=== PATIENT | male | born 1965 | race Caucasian/White ===

== ENCOUNTER 2017-01-29 11:44 | Day surgery (SDC) | payer BC ==
[2017-01-27 10:16] VITALS: BMI 29.5
[~2017-01-29 11:44] MED LIST: LACTATED RINGERS 1,000 ML IV SCH
[2017-01-29 12:19] VITALS: TEMP 98
[2017-01-29] MEDS ORDERED: LACTATED RINGERS 1,000 ML IV ONE (12:20)
[2017-01-29] MEDS ORDERED: LIDOCAINE 1% 20 ML VIAL (10MG/ML) FOR IV START INTRADERMA ONE (12:20)
[2017-01-29] MEDS ORDERED: LIDOCAINE 1% INJ 10MG/ML (20 ML MDV) ONE (12:37)
[2017-01-29] MEDS ORDERED: PROPOFOL 10 MG/ML 20 ML VIAL IV ONE (12:37)
--- NOTE | 2017-01-29 12:48 | P.GSHP ---
History of Present Illness H&P Date: 01/29/17 Chief Complaint: GERD, screening Patient today with complaints of chronic reflux. She he has a family history of esophageal cancer in his father. Also here today for screening colonoscopy. No bowel related complaints. Never had a colonoscopy before. Past Medical History Past Medical History: GERD/Reflux, Hyperlipidemia Additional Past Medical History / Comment(s): vertigo History of Any Multi-Drug Resistant Organisms: None Reported Past Surgical History: Hernia Repair, Orthopedic Surgery Additional Past Surgical History / Comment(s): repair torn meniscus rt knee Past Anesthesia/Blood Transfusion Reactions: Motion Sickness, Postoperative Nausea & Vomiting (PONV) Smoking Status: Never smoker Past Alcohol Use History: Occasional Past Drug Use History: None Reported - Past Family History Father Additional Family Medical History / Comment(s): barretts Medications and Allergies Home Medications Medication Instructions Recorded Confirmed Type Aspirin [Adult Low Dose Aspirin EC] 81 mg PO DAILY 01/27/17 01/27/17 History Meclizine [Antivert] 25 mg PO DAILY PRN 01/27/17 01/27/17 History Multivitamins, Thera [Multivitamin 1 tab PO DAILY 01/27/17 01/27/17 History (formulary)] Rosuvastatin Calcium [Crestor] 5 mg PO DAILY 01/27/17 01/27/17 History Allergies Allergy/AdvReac Type Severity Reaction Status Date / Time No Known Allergies Allergy Verified 01/27/17 10:03 Surgical - Exam Vital Signs Temp Pulse Resp BP Pulse Ox 98.0 F 78 18 154/99 99 01/29/17 12:11 01/29/17 12:11 01/29/17 12:11 01/29/17 12:11 01/29/17 12:11 Physical exam: General: Well-developed, well-nourished HEENT: Normocephalic, sclerae nonicteric Abdomen: Nontender, nondistended Extremities: No edema Neuro: Alert and oriented Assessment and Plan (1) Colon cancer screening Narrative/Plan: Will proceed with upper and lower endoscopy at this time. Status: Acute
--- NOTE | 2017-01-29 13:06 | P.PCN ---
Date of Procedure: 01/29/17 Procedure(s) Performed: PREOPERATIVE DIAGNOSIS: GERD, screening POSTOPERATIVE DIAGNOSIS: Stratus, small hiatal hernia, mild distal esophagitis, normal colonoscopy PROCEDURE: 1. EGD with biopsy 2. Colonoscopy ANESTHESIA: MAC SURGEON: David Umanzor M.D. SPECIMENS: Antrum, GE junction ENDOSCOPIC PROCEDURE: The patient was on the endoscopy table in the left decubitus position. The Olympus gastroscope was inserted into the oropharynx and passed under direct visualization to the region of the third portion of the duodenum. From that point the scope was slowly withdrawn inspecting all surfaces carefully. There were no neoplastic inflammatory or polypoid lesions throughout the duodenum. The pylorus was widely patent. The stomach was carefully inspected. There was gastritis present. A biopsy of the antrum took place to rule out H. pylori. Retroflexion revealed a small sliding hiatal hernia. The esophagus was then carefully examined. There was evidence of mild distal esophagitis present just above the GE junction. Biopsies of the GE junction took place. The remainder the esophagus appeared normal. The patient was kept on the endoscopy table in the left decubitus position. The Olympus colonoscope was inserted into the anus and passed under direct visualization to the base of the cecum. The appendiceal orifice was visualized. From that point the scope was slowly withdrawn inspecting all surfaces carefully. There were no neoplastic inflammatory or polypoid lesions throughout the cecum, ascending, transverse, descending, sigmoid and rectum. There was no diverticulosis noted. Digital rectal examination was normal. The patient was taken to the recovery room in stable condition per anesthesia guidelines. RECOMMENDATIONS: Await biopsy results. Follow colonoscopy 10 years.
[2017-01-29 13:11] VITALS: RESP 20
[2017-01-29 13:42] VITALS: BP 138/82; PULSE 71
== END 2017-01-29 13:55 | disposition home or self-care (01) ==
LOC: ORWHC2ENDO 11:44
PROVIDERS: ATTEND Surgery
DX: Z12.11 Encounter for screening for malignant neoplasm of colon (principal); K29.50 Unspecified chronic gastritis without bleeding; K21.0 Gastro-esophageal reflux disease with esophagitis; K44.9 Diaphragmatic hernia without obstruction or gangrene; Z80.0 Family history of malignant neoplasm of digestive organs; E78.5 Hyperlipidemia, unspecified; Z79.82 Long term (current) use of aspirin; Z79.899 Other long term (current) drug therapy
CPT/HCPCS: 88305; 88342; 43239; J2001; J2704; G0121; 45378

== ENCOUNTER 2019-10-13 06:25 | Day surgery (SDC) | payer BC ==
[2019-10-11 09:55] VITALS: BMI 29.5
[~2019-10-13 06:25] MED LIST changes: +DEXAMETHASONE SOD PHOSPHATE 10 MG/ML 1 ML VIAL IV ONE; +HEPARIN SODIUM,PORCINE 5,000 UNIT/ML 1 ML VIAL SQ ONE; +HYDROmorphone 0.5 MG/0.5 ML SYRINGE IVP PRN; +LIDOCAINE 1% 20 ML VIAL (10MG/ML) FOR IV START INTRADERMA PRN; +ONDANSETRON 4 MG/2 ML VIAL IVP ONE; +fentaNYL (PF) 50 MCG/ML 2 ML AMP IV PRN
[2019-10-13] MEDS ORDERED: SCOPOLAMINE 1.5MG/72HR PATCH TRANSDERM ONE (07:10)
[2019-10-13 07:13] LABS: Basophils # (A) 0.1 k/uL (0-0.2); Basophils % (A) 2 %; Eosinophils # (A) 0.2 k/uL (0-0.7); Eosinophils % (A) 5 %; HCT 47.8 % (39.0-53.0); Lymphocytes # (A) 1.5 k/uL (1.0-4.8); Lymphocytes % (A) 31 %; MCH 28.8 pg (25.0-35.0); MCHC 33.4 g/dL (31.0-37.0); MCV 86.3 fL (80.0-100.0); Mean Platelet Volume 7.6; Monocytes # (A) 0.4 k/uL (0-1.0); Monocytes % (A) 7 %; Neutrophils # (A) 2.6 k/uL (1.3-7.7); Neutrophils % (A) 52 %; Platelet Count 177 k/uL (150-450); RBC 5.54 m/uL (4.30-5.90); RDW 12.6 % (11.5-15.5)
[2019-10-13] MEDS ORDERED: fentaNYL (PF) 50 MCG/ML 2 ML AMP IVP ONE ×2 (07:48→08:05)
[2019-10-13] MEDS ORDERED: MIDAZOLAM 2 MG/2 ML VIAL IVP ONE ×2 (07:48→08:05)
[2019-10-13] MEDS ORDERED: LIDOCAINE 1% INJ 10MG/ML (20 ML MDV) ONE (08:02)
[2019-10-13] MEDS ORDERED: ePHEDrine SULFATE/0.9% NACL/PF 50 MG/5 ML SYRINGE IV ONE (08:02)
[2019-10-13] MEDS ORDERED: PROPOFOL 10 MG/ML 20 ML VIAL IV ONE (08:02)
[2019-10-13] MEDS ORDERED: NEOSTIGMINE 1 MG/ML 10 ML VIAL ONE (08:02)
[2019-10-13] MEDS ORDERED: LIDOCAINE 1%-EPI 1:100,000 20 ML VIAL ONE (08:02)
[2019-10-13] MEDS ORDERED: GLYCOPYRROLATE 0.2 MG/ML 2 ML VIAL ONE (08:02)
[2019-10-13] MEDS ORDERED: SUCCINYLCHOLINE CHLORIDE 100 MG/5 ML SYR IV ONE (08:02)
[2019-10-13] MEDS ORDERED: PHENYLEPHRINE-0.9% NACL SYG 1 MG/10 ML SYRINGE ONE (08:02)
[2019-10-13] MEDS ORDERED: ROCURONIUM BROMIDE 10 MG/ML 10 ML VIAL IV ONE (08:02)
[2019-10-13] MEDS ORDERED: fentaNYL (PF) 50 MCG/ML 2 ML AMP ONE (08:02)
[2019-10-13] MEDS ORDERED: ROPIVACAINE 5 MG/ML 30 ML VIAL ONE (08:02)
[2019-10-13] MEDS ORDERED: BUPIVACAINE (PF) 0.25% 30 ML VIAL SQ ONE ×2 (08:05→08:45)
[2019-10-13] MEDS ORDERED: HYDROcodone/APAP 5-325MG 1 EACH TAB PO PRN (09:23)
[2019-10-13] MEDS ORDERED: NALOXONE 0.4 MG/ML 1 ML VIAL IV PRN (09:23)
[2019-10-13] MEDS ORDERED: ONDANSETRON 4 MG/2 ML VIAL IVP ONE (09:28)
[2019-10-13] MEDS ORDERED: PROMETHAZINE INJ 25 MG/ML 1 ML VIAL IVPB ONE (09:34)
--- NOTE | 2019-10-13 09:35 | P.OP ---
Date of Procedure: 10/13/19 Procedure(s) Performed: PREOPERATIVE DIAGNOSIS: Incarcerated umbilical hernia POSTOPERATIVE DIAGNOSIS: Same PROCEDURE: Umbilical herniorrhaphy with mesh, partial omentectomy SURGEON: Erna EBL: Minimal ANESTHESIA: General COMPLICATIONS: None OPERATIVE PROCEDURE: The patient was placed in the operating table in the supine position. A periumbilical incision was made using the scalpel. The subcutaneous tissues were dissected bluntly. The hernia sac was identified. The umbilical attachments to the fascia were divided using electrocautery. The hernia sac was excised. The patient had omentum stuck within the hernia sac that was excised. The omentum was ligated using 3-0 silk ties. The hernia sac and omentum was sent to pathology. The preperitoneal space was dissected using electrocautery. The 4.3 cm ventral ex mesh was placed beneath the fascia and sutured in place using interrupted vest over pants mattress 0 Ethibond sutures. The folding edge was tacked down using 0 Ethibond sutures as well. The defect was closed using interrupted [id number] 0 Ethibond sutures. The subcutaneous tissues were reapproximated using inverted 3-0 Vicryl sutures. The umbilicus was tacked back down to the fascia using a 3-0 Vicryl suture. The skin was closed using 4-0 Monocryl sutures. Skin glue and sterile dressings were then applied. DISPOSITION: Stable to recovery room
[2019-10-13 09:42] VITALS: TEMP 97.6
[2019-10-13 09:47] VITALS: RESP 16
--- NOTE | 2019-10-13 09:56 | P.ANPRN ---
Procedure Note - Anesthesia - Nerve Block Performed Bilateral Rectus Abdominis Single Time Out Performed: Yes Date of Procedure: 10/13/19 Procedure Start Time: 07:48 Procedure Stop Time: 07:59 Location of Patient: PreOp Indication: Acute Post-Operative Pain, Requested by Surgeon ([email or web address]) Specifically requested for management of pain by DrKarin: David Umanzor Sedation Type: Sedate with meaningful contact maintained Preparation: Sterile Prep Position: Supine Catheter: None Needle Types: Pajunk Needle Gauge: 20 Ultrasound used to visualize needle placement: Yes Ultrasound used to observe medication spread: Yes Injectate: Other (see comment) (Ropivacaine 0.25%/lidocaine 0.5% 25 mL per side) Adjunct: Epinephrine (see comment for dilution ratio) (1:200,000) Blood Aspirated: No Pain Paresthesia on Injection Noted: No Resistance on Injection: Normal Image Stored and Saved: Yes Events: Uneventful and Well Tolerated
[2019-10-13] MEDS ORDERED: KETOROLAC 30 MG/ML 1 ML VIAL IVP ONE (09:59)
[2019-10-13 11:08] VITALS: BP 147/87; PULSE 78
[2019-10-13] MEDS ORDERED: IV FLUID CONTINUATION 1,000 ML IV ONE (11:08)
== END 2019-10-13 11:20 | disposition home or self-care (01) ==
LOC: OR 06:25
PROVIDERS: ATTEND Surgery
DX: K42.0 Umbilical hernia with obstruction, without gangrene (principal); K21.9 Gastro-esophageal reflux disease without esophagitis; E78.5 Hyperlipidemia, unspecified; I10 Essential (primary) hypertension; G47.33 Obstructive sleep apnea (adult) (pediatric); Z87.19 Personal history of other diseases of the digestive system; Z98.890 Other specified postprocedural states; Z88.8 Allergy status to other drugs, medicaments and biological substances; Z79.899 Other long term (current) drug therapy
CPT/HCPCS: 93005; 64488; 88305; 85025; 49587; C1781; J2250; J1644; J1100; J2550; J2710; J0690; J2405; J2001; J3010; J1885; J2795; J2370; J0330; J2704

== ENCOUNTER → 2019-11-22 | Outpatient (CLI) | payer BC ==
--- NOTE | 2019-11-22 12:25 | FL ---
EXAMINATION TYPE: FL barium swallow w video DATE OF EXAM: 11/22/2019 COMPARISON: NONE HISTORY: Cough following drinking thin liquids for 10 years TECHNIQUE: Fluoroscopy. FINDINGS: Fluoroscopic guidance was provided for the procedure performed in conjunction with the [facility] 2[place] department. Please see complete report forthcoming from the Speech Pathology departmen t. Various consistencies from thin liquid to solids were administered. Fluoroscopy time 1 minute 6 seconds. Number of images: 0. No aspiration or penetration was evident. No significant pooling was observed in the vallecula. There was normal propulsion of the bolus. Minimal residuals with thicker consistencies within the proximal esophagus cleared with thin liquids. IMPRESSION: 1. Essentially normal modified barium swallow
== END | disposition home or self-care (01) ==
LOC: RADFLMAIN 10:55
PROVIDERS: ATTEND Otolaryngology
DX: R13.10 Dysphagia, unspecified (principal)
CPT/HCPCS: 74230

== ENCOUNTER → 2019-11-28 | Outpatient (CLI) | payer BC ==
--- NOTE | 2019-11-28 23:37 | CONS ---
CONSULTATION REASON FOR CONSULTATION: Sleep apnea. 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 He works between 7 p.m. and 7 a.m. He goes to bed around 7 a.m. and he gets out of bed around 5 p.m. He does his work at the [employer] and he sleeps in the facility. No significant hypersomnia or sleepiness during the day. He is able to function well without any major difficulties in concentration, memory or attention span. He does have loud snoring; this was a major concern of the family. He has been also told that he has occasional apneas. For that reason, he was evaluated by a home sleep study through his primary care physician. I got the report of the sleep study, and the patient was felt to have moderate to severe obstructive sleep apnea with an AHI of 17.8. The patient had a total of 122 events, and obstructive respiratory events were worse during REM sleep. AHI during REM was 38.7. He spent approximately 5 minutes of his sleep time with a pulse ox of less than 88%. The minimum pulse ox was 78%. Norwich score is zero for now. He is able to drive long distances back and forth from [place] to [place] without having to fall asleep. He has no sleep paralysis, no hallucinations, no cataplexy. No other complaints otherwise. PAST MEDICAL HISTORY: Hypertension, hyperlipidemia and obstructive sleep apnea, as mentioned. PAST SURGICAL HISTORY: Includes inguinal hernia repair, umbilical hernia repair and bilateral meniscal repair. DRUG ALLERGIES: NITRATES. OUTPATIENT MEDICATION LIST: Includes Crestor 5 mg p.o. daily, Norvasc/benazepril 5/20 one tablet a day. SOCIAL HISTORY: Nonsmoker. No history of alcoholism. No history of IV drugs. FAMILY HISTORY: Negative for sleep apnea. REVIEW OF SYSTEMS: Fourteen-point review of systems was done. Positive for snoring. No excessive fatigue or sleepiness. No insomnia. No choking or gasping for air. No nocturia. No grinding of the teeth. No sleepwalking or dry mouth. No anxiety or panic attacks. No palpitations. Occasional nocturnal heartburn is present. No sleepwalking. No restlessness in the lower extremities. No gasping for air. No sweating. No sexual dysfunction. No claustrophobia. No anxiety. No depression or irritability. No other complaints otherwise. PHYSICAL EXAMINATION: His current vitals are blood pressure 123/78, pulse 80, respirations 16, temperature 98.1, saturation 95% on room air. Height is 5 feet 8 inches, weight is 217. Neck size is 16-1/4 inches. BMI 32.5. Norwich score is zero. GENERAL APPEARANCE: Calm, comfortable. HEAD: Atraumatic, normocephalic. NECK: Supple. No JVD. No goiter or neck masses. Mallampati class IV. LUNGS: Clear to auscultation. HEART: Heart sounds are regular rate and rhythm. Normal S1, S2. No S3, S4. No murmurs. ABDOMEN: Soft, nontender. No organomegaly. EXTREMITIES: No edema. No cyanosis or clubbing. NEUROLOGIC: Awake and alert. There is no focal neurological deficit. PSYCHIATRIC: Negative for anxiety or depression. IMPRESSION: 1. Obstructive sleep apnea, moderately severe. AHI of 17. Despite the moderate severity of sleep apnea, the patient is not having major symptoms. Norwich score is zero at this point in time. 2. Hypertension. 3. Hyperlipidemia. PLAN: I had a lengthy discussion with Marcos regarding this diagnosis. We decided to give him a trial of APAP, minimum pressure of 5, maximum pressure of 15, with an AirFit P30i nose piece. The patient will come and see me back in 30 to 90 days to assess his clinical response and decide if this something he would like to use in the future. For now, based on the moderately severe obstructive sleep apnea as documented in his home sleep study, it was worthwhile at least giving the patient a trial of CPAP and assess the patient's clinical response. I will make further recommendations accordingly. MMODL / IJN: [id number] /
== END | disposition home or self-care (01) ==
LOC: SLEEP 14:41
PROVIDERS: ATTEND Internal Medicine Critical Care Medicine
DX: G47.33 Obstructive sleep apnea (adult) (pediatric) (principal); I10 Essential (primary) hypertension; E78.5 Hyperlipidemia, unspecified; Z79.899 Other long term (current) drug therapy; Z88.8 Allergy status to other drugs, medicaments and biological substances
CPT/HCPCS: 99211

== ENCOUNTER → 2019-12-05 | Outpatient (CLI) | payer BC ==
[2019-12-05 17:16] LABS: ALT 17 U/L (10-49); AST 19 U/L (14-35)
== END | disposition home or self-care (01) ==
LOC: LABWHC1 09:21
PROVIDERS: ATTEND Podiatrist Foot & Ankle Surgery
DX: K74.60 Unspecified cirrhosis of liver (principal)
CPT/HCPCS: 36415; 84450; 84460

== ENCOUNTER 2020-04-18 02:35 | Observation (INO) | payer BC ==
[2020-04-18 03:15] LABS: Basophils % (A) 1 %; Eosinophils # (A) 0.1 k/uL (0-0.7); Eosinophils % (A) 2 %; HCT 47.5 % (39.0-53.0); HGB 16.3 gm/dL (13.0-17.5); Lymphocytes # (A) 1.4 k/uL (1.0-4.8); Lymphocytes % (A) 20 %; MCH 29.7 pg (25.0-35.0); MCHC 34.3 g/dL (31.0-37.0); MCV 86.6 fL (80.0-100.0); Mean Platelet Volume 7.6; Monocytes # (A) 0.3 k/uL (0-1.0); Monocytes % (A) 5 %; Neutrophils # (A) 4.7 k/uL (1.3-7.7); Neutrophils % (A) 70 %; Platelet Count 183 k/uL (150-450); RBC 5.48 m/uL (4.30-5.90); WBC 6.6 k/uL (3.8-10.6)
[2020-04-18 03:15] LABS: Appearance,Urine Clear (Clear); Bilirubin,Urine Negative (Negative); Blood,Urine Negative (Negative); Color,Urine Yellow; Glucose,Urine (UA) Negative (Negative); Ketones,Urine Negative (Negative); Leukocyte Esterase,Urine Negative (Negative); Nitrite,Urine Negative (Negative); Protein,Urine Trace (Negative); Specific Gravity,Urine 1.024 (1.001-1.035)
[2020-04-18 03:22] LABS: ALT 16 U/L (4-49); AST 20 U/L (17-59); African American GFR (CKD) >90 (>60 ml/min/1.73 sqM); Albumin 5.2 g/dL (3.5-5.0); Alkaline Phosphatase 69 U/L (38-126); Amylase 61 U/L (30-110); Anion Gap 11 mmol/L; Blood Urea Nitrogen 9 mg/dL (9-20); Calcium 9.6 mg/dL (8.4-10.2); Carbon Dioxide 27 mmol/L (22-30); Chloride 101 mmol/L (98-107); Glucose 125 mg/dL (74-99); Non-African American GFR(CKD) >90 (>60 ml/min/1.73 sqM); Potassium 4.4 mmol/L (3.5-5.1); Sodium 139 mmol/L (137-145); Total Bilirubin 0.6 mg/dL (0.2-1.3); Total Protein 7.8 g/dL (6.3-8.2)
--- NOTE | 2020-04-18 03:26 | ED ---
Abdominal Pain HPI - General Chief Complaint: Abdominal Pain Stated Complaint: abd pain Time Seen by Provider: 04/18/20 02:48 Source: patient Mode of arrival: ambulatory Limitations: no limitations - History of Present Illness Initial Comments: This patient is a 55-year-old man who presents to be evaluated for abdominal pain. The patient states that it had come on proximally 27 hours ago while he was rest. Is located in the right upper quadrant, aching, and it initially lasted for about an hour, resolved then recurred for approximately an hour liat und 3 AM. The symptoms had resolved and then recurred this morning. No change in bladder or bowel function. No pain to the lower abdomen, to the scrotum or testicles. MD Complaint: abdominal pain Onset/Timin -: hour(s) Location: RUQ Radiation: none Migration to: no migration Severity: moderate Quality: aching Consistency: colicky Improves With: nothing Worsens With: nothing Associated Symptoms: nausea - Related Data Home Medications Medication Instructions Recorded Confirmed Multivitamins, Thera [Multivitamin 1 tab PO DAILY 01/27/17 04/18/20 (formulary)] Rosuvastatin Calcium [Crestor] 5 mg PO DAILY 01/27/17 04/18/20 amLODIPine BES/OLMESARTAN MED 1 tab PO DAILY 10/11/19 04/18/20 [amLODIPine BES/OLMESARTAN MED 5-20 MG] Rosuvastatin Calcium [Crestor] 5 mg PO DAILY 04/18/20 04/18/20 Allergies Allergy/AdvReac Type Severity Reaction Status Date / Time Nitrate Analogues Allergy Unknown Verified 04/18/20 07:01 Review of Systems ROS Statement: Those systems with pertinent positive or pertinent negative responses have been documented in the HPI. ROS Other: All systems not noted in ROS Statement are negative. Constitutional: Denies: fever, chills Respiratory: Denies: cough, dyspnea Cardiovascular: Denies: chest pain, edema Gastrointestinal: Reports: as per HPI, abdominal pain, nausea. Denies: vomiting, diarrhea, constipation Genitourinary: Denies: dysuria, hematuria, testicular pain, testicular mass Musculoskeletal: Denies: back pain Skin: Denies: rash Neurological: Denies: headache, weakness, numbness Past Medical History Past Medical History: GERD/Reflux, Hyperlipidemia, Hypertension, Sleep Apnea/CPAP/BIPAP Additional Past Medical History / Comment(s): vertigo History of Any Multi-Drug Resistant Organisms: None Reported Past Surgical History: Hernia Repair, Orthopedic Surgery Additional Past Surgical History / Comment(s): eleno repair torn meniscus Past Anesthesia/Blood Transfusion Reactions: Motion Sickness, Postoperative Nausea & Vomiting (PONV) Past Psychological History: No Psychological Hx Reported Past Alcohol Use History: Occasional Past Drug Use History: None Reported - Past Family History Father Family Medical History: Diabetes Mellitus, Hypertension Additional Family Medical History / Comment(s): barretts General Exam Limitations: no limitations General appearance: alert, in no apparent distress Head exam: Present: atraumatic, normocephalic Eye exam: Present: normal appearance. Absent: scleral icterus, conjunctival injection ENT exam: Present: normal oropharynx Neck exam: Present: normal inspection Respiratory exam: Present: normal lung sounds bilaterally. Absent: respiratory distress, wheezes, rales, rhonchi, stridor Cardiovascular Exam: Present: regular rate, normal rhythm, normal heart sounds. Absent: systolic murmur, diastolic murmur, rubs, gallop GI/Abdominal exam: Present: soft, tenderness, normal bowel sounds. Absent: distended, guarding, rebound, rigid, mass, pulsatile mass, hernia Extremities exam: Present: normal inspection, normal capillary refill. Absent: pedal edema, calf tenderness Back exam: Present: normal inspection. Absent: CVA tenderness (R), CVA tenderness (L) Neurological exam: Present: alert Skin exam: Present: warm, dry, intact, normal color. Absent: rash Course Vital Signs 04/18/20 04/18/20 04/18/20 02:38 05:00 06:53 Temperature 97.7 F Pulse Rate 77 77 67 Pulse Rate [ Pulse Oximetery ] Respiratory 18 18 18 Rate Blood Pressure 140/95 143/100 144/98 Blood Pressure [Left Arm] O2 Sat by Pulse 98 100 98 Oximetry 04/18/20 06:58 Temperature 98.1 F Pulse Rate Pulse Rate [ 66 Pulse Oximetery ] Respiratory 18 Rate Blood Pressure Blood Pressure 152/82 [Left Arm] O2 Sat by Pulse 97 Oximetry Medical Decision Making - Medical Decision Making Patient's 55-year-old man presenting with approximately 27 hours of right upper quadrant pain that has been colicky in nature. The workup reveals what appears to be symptomatic cholelithiasis. Patient's surgeon Dr. Umanzor will be unavailable for the next week and he would like to be evaluated by Dr. Mcqueen who is on-call. Case discussed and patient be admitted for further symptom control and evaluation. - Lab Data Result diagrams: 04/18/20 02:56 04/18/20 02:56 Lab Results 04/18/20 04/18/20 04/18/20 Range/Units 02:56 02:56 03:02 WBC 6.6 (3.8-10.6) k/uL RBC 5.48 (4.30-5.90) m/uL Hgb 16.3 (13.0-17.5) gm/dL Hct 47.5 (39.0-53.0) % MCV 86.6 (80.0-100.0) fL MCH 29.7 (25.0-35.0) pg MCHC 34.3 (31.0-37.0) g/dL RDW 13.0 (11.5-15.5) % Plt Count 183 (150-450) k/uL Neutrophils % 70 % Lymphocytes % 20 % Monocytes % 5 % Eosinophils % 2 % Basophils % 1 % Neutrophils # 4.7 (1.3-7.7) k/uL Lymphocytes # 1.4 (1.0-4.8) k/uL Monocytes # 0.3 (0-1.0) k/uL Eosinophils # 0.1 (0-0.7) k/uL Basophils # 0.0 (0-0.2) k/uL Sodium 139 (137-145) mmol/L Potassium 4.4 (3.5-5.1) mmol/L Chloride 101 (98-107) mmol/L Carbon Dioxide 27 (22-30) mmol/L Anion Gap 11 mmol/L BUN 9 (9-20) mg/dL Creatinine 0.92 (0.66-1.25) mg/dL Est GFR (CKD-EPI)AfAm >90 (>60 ml/min/1.73 sqM) Est GFR (CKD-EPI)NonAf >90 (>60 ml/min/1.73 sqM) Glucose 125 H (74-99) mg/dL Calcium 9.6 (8.4-10.2) mg/dL Total Bilirubin 0.6 (0.2-1.3) mg/dL AST 20 (17-59) U/L ALT 16 (4-49) U/L Alkaline Phosphatase 69 (38-126) U/L Total Protein 7.8 (6.3-8.2) g/dL Albumin 5.2 H (3.5-5.0) g/dL Amylase 61 (30-110) U/L Lipase 165 (23-300) U/L Urine Color Yellow Urine Appearance Clear (Clear) Urine pH 7.0 (5.0-8.0) Ur Specific [place] 1.024 (1.001-1.035) Urine Protein Trace H (Negative) Urine Glucose (UA) Negative (Negative) Urine Ketones Negative (Negative) Urine Blood Negative (Negative) Urine Nitrite Negative (Negative) Urine Bilirubin Negative (Negative) Urine Urobilinogen 2.0 (<2.0) mg/dL Ur Leukocyte Esterase Negative (Negative) Disposition Clinical Impression: Symptomatic cholelithiasis Disposition: ADMITTED IP TO THIS [facility] Condition: Stable Is patient prescribed a controlled substance at d/c from ED?: No
--- NOTE | 2020-04-18 03:32 | CT ---
EXAMINATION TYPE: CT abdomen pelvis wo con DATE OF EXAM: 04/18/2020 COMPARISON: None HISTORY: RUQ pain hx of hernia surgery CT DLP: 775 mGycm Automated exposure control for dose reduction was used. Images were obtained from the diaphragm to the floor the pelvis without contrast. FINDINGS: Lung bases are clear. There is no pleural effusion. Heart size is normal. There is no pericardial eff usion. Liver spleen pancreas appear normal. Bile ducts are not dilated. There are several calcified gallston es. Stomach is intact. There is no adrenal mass. Kidneys have normal size. There is no hydronephrosis. Ureters are not dilat ed. There is no retroperitoneal adenopathy. Bladder distends smoothly. There is no inguinal hernia. T here is no free fluid in the pelvis. Appendix is lateral and appears normal. There is no mesenteric edema. There is no ascites or free air. There is no bowel obstruction. Lumbar vertebra have normal alignment. Disc spaces are fairly normal. Posterior elements are intact. Bony pelvis appears intact. IMPRESSION: Cholelithiasis. No dilated ducts. No renal stone or obstruction. Normal appendix.
[2020-04-18] MEDS ORDERED: NALOXONE 0.4 MG/ML 1 ML VIAL IV PRN (06:24)
[2020-04-18] MEDS ORDERED: ONDANSETRON 4 MG/2 ML VIAL IVP PRN (06:24)
[2020-04-18] MEDS ORDERED: HYDROmorphone 0.5 MG/0.5 ML SYRINGE IVP PRN (06:24)
[2020-04-18] MEDS ORDERED: HYDROmorphone 1 MG/ML 1 ML SYRINGE IVP PRN (06:24)
[2020-04-18] MEDS: SODIUM CHLORIDE 0.9% 1,000 ML IV SCH ×3 (06:40→23:08)
[2020-04-18] MEDS: FAMOTIDINE 20 MG/2 ML VIAL IV SCH ×2 (06:44→21:19)
--- NOTE | 2020-04-18 10:05 | P.GSHP ---
History of Present Illness H&P Date: 04/18/20 CHIEF COMPLAINT: Right upper quadrant abdominal pain HISTORY OF PRESENT ILLNESS: The patient is a 55-year-old male who presents with 2 day history of right upper quadrant abdominal pain severe in intensity cramping 10 out of 10. He had a recent attack less than 1 week ago. He reports history of intermittent fasting of over 36 hours. He reports eating at [employer] for supper last night. As a result of the persistent stabbing pain, patient presented to emergency room. He denies any pre-existing history or family history of gallbladder disease. Additional diagnostic studies perf ormed with findings of gallstones, symptomatic. PAST MEDICAL HISTORY: Please see list and reviewed with hypertension PAST SURGICAL HISTORY: Please see list and reviewed with history of upper endoscopy and hernia repair, 2020 MEDICATIONS: Please see list and reviewed ALLERGIES: Please see list and reviewed SOCIAL HISTORY: No illicit drug use or recent tobacco use. Patient is nurse. FAMILY HISTORY: Denies gallbladder disease REVIEW OF ORGAN SYSTEMS: CONSTITUTIONAL: No reports of fevers or chills. HEENT: Denies any troubles with the vision or hearing. ENDOCRINE: No reports of hypothyroidism. No diabetes. RESPIRATORY: No recent pneumonias. CARDIOVASCULAR: Denies chest pain or palpitations GI: No blood in stools or constipation. MUSCULOSKELETAL: Has occasional joint pain including back pain. NEURO: No seizure disorders or headaches. No recent stroke. PSYCH: No depression or suicidal ideation. HEMATOLOGIC: No personal or family history of DVTs or pulmonary emboli. PHYSICAL EXAM: VITAL SIGNS: Afebrile vital signs stable GENERAL: Well-developed pleasant male in no acute distress. HEENT: No scleral icterus. Extraocular movements grossly intact. Moist buccal mucosa. NECK: Supple without lymphadenopathy. CHEST: Unlabored respirations. Equal bilateral excursions. CARDIOVASCULAR: Regular rate regular rhythm rhythm. Distal 2+ pulses. ABDOMEN: Soft, nondistended. Tender along the epigastrium and right upper quadrant. MUSCULOSKELETAL: No clubbing, cyanosis, or edema. NEURO : No focal or lateralizing signs. Cranial nerves II-12 within normal limits. PSYCH: Alert and oriented to person, place and time. SKIN: Well perfused. Good skin turgor. LABS: Reviewed. LFTs including a cholesterol count normal. STUDIES: CT of the abdomen and pelvis and independent reviewed demonstrating 3 large gallstones including along the infundibulum. This is my independent interpretation. ASSESSMENT: 1. Epigastric and right upper quadrant abdominal pain 2. Symptomatic gallstones with acute cholecystitis PLAN: 1. He presents acutely with right upper quadrant abdominal pain, severe in intensity with findings of obstructive cystic duct along the infundibulum for acute cholecystitis. Will need a robotic cholecystectomy possible open. Benefits and risks were described. 2. Heparin for DVT prophylaxis 5000 units. 3. Antibiotic prophylaxis. Past Medical History Past Medical History: GERD/Reflux, Hyperlipidemia, Hypertension, Sleep Apnea/CPAP/BIPAP Additional Past Medical History / Comment(s): vertigo History of Any Multi-Drug Resistant Organisms: None Reported Past Surgical History: Hernia Repair, Orthopedic Surgery Additional Past Surgical History / Comment(s): eleno repair torn meniscus Past Anesthesia/Blood Transfusion Reactions: Motion Sickness, Postoperative Nausea & Vomiting (PONV) Past Psychological History: No Psychological Hx Reported Smoking Status: Never smoker Past Alcohol Use History: Occasional Past Drug Use History: None Reported - Past Family History Father Family Medical History: Diabetes Mellitus, Hypertension Additional Family Medical History / Comment(s): barretts Medications and Allergies Home Medications Medication Instructions Recorded Confirmed Type Multivitamins, Thera [Multivitamin 1 tab PO DAILY 01/27/17 04/18/20 History (formulary)] Rosuvastatin Calcium [Crestor] 5 mg PO DAILY 01/27/17 04/18/20 History amLODIPine BES/OLMESARTAN MED 1 tab PO DAILY 10/11/19 04/18/20 History [amLODIPine BES/OLMESARTAN MED 5-20 MG] Rosuvastatin Calcium [Crestor] 5 mg PO DAILY 04/18/20 04/18/20 History Allergies Allergy/AdvReac Type Severity Reaction Status Date / Time Nitrate Analogues Allergy Unknown Verified 04/18/20 07:01 Surgical - Exam Vital Signs Temp Pulse Resp BP Pulse Ox 97.7 F 77 18 140/95 98 04/18/20 02:38 04/18/20 02:38 04/18/20 02:38 04/18/20 02:38 04/18/20 02:38 Results - Labs 04/18/20 02:56 04/18/20 02:56 Abnormal Lab Results - Last 24 Hours (Table) 04/18/20 04/18/20 Range/Units 02:56 03:02 Glucose 125 H (74-99) mg/dL Albumin 5.2 H (3.5-5.0) g/dL Urine Protein Trace H (Negative) Diabetes panel 04/18/20 Range/Units 02:56 Sodium 139 (137-145) mmol/L Potassium 4.4 (3.5-5.1) mmol/L Chloride 101 (98-107) mmol/L Carbon Dioxide 27 (22-30) mmol/L BUN 9 (9-20) mg/dL Creatinine 0.92 (0.66-1.25) mg/dL Glucose 125 H (74-99) mg/dL Calcium 9.6 (8.4-10.2) mg/dL AST 20 (17-59) U/L ALT 16 (4-49) U/L Alkaline Phosphatase 69 (38-126) U/L Total Protein 7.8 (6.3-8.2) g/dL Albumin 5.2 H (3.5-5.0) g/dL Calcium panel 04/18/20 Range/Units 02:56 Calcium 9.6 (8.4-10.2) mg/dL Albumin 5.2 H (3.5-5.0) g/dL Pituitary panel 04/18/20 Range/Units 02:56 Sodium 139 (137-145) mmol/L Potassium 4.4 (3.5-5.1) mmol/L Chloride 101 (98-107) mmol/L Carbon Dioxide 27 (22-30) mmol/L BUN 9 (9-20) mg/dL Creatinine 0.92 (0.66-1.25) mg/dL Glucose 125 H (74-99) mg/dL Calcium 9.6 (8.4-10.2) mg/dL Adrenal panel 04/18/20 Range/Units 02:56 Sodium 139 (137-145) mmol/L Potassium 4.4 (3.5-5.1) mmol/L Chloride 101 (98-107) mmol/L Carbon Dioxide 27 (22-30) mmol/L BUN 9 (9-20) mg/dL Creatinine 0.92 (0.66-1.25) mg/dL Glucose 125 H (74-99) mg/dL Calcium 9.6 (8.4-10.2) mg/dL Total Bilirubin 0.6 (0.2-1.3) mg/dL AST 20 (17-59) U/L ALT 16 (4-49) U/L Alkaline Phosphatase 69 (38-126) U/L Total Protein 7.8 (6.3-8.2) g/dL Albumin 5.2 H (3.5-5.0) g/dL Assessment and Plan (1) Acute cholecystitis due to biliary calculus Current Visit: Yes Status: Acute Code(s): K80.00 - CALCULUS OF GALLBLADDER W ACUTE CHOLECYST W/O OBSTRUCTION SNOMED Code(s): 96843877920244
[2020-04-18] MEDS: LOSARTAN 50 MG TAB PO SCH (10:11)
[2020-04-18] MEDS: amLODIPine 5 MG TAB PO SCH (10:12)
[2020-04-18] MEDS ORDERED: PIPERACILLIN-TAZOBACTAM 3.375 GM in SODIUM CHLORIDE 0.9% 100 ML IVPB STA (15:44)
[2020-04-18] MEDS ORDERED: INDOCYANINE GREEN 25 MG VIAL IV STA (15:44)
[2020-04-18] MEDS ORDERED: GABAPENTIN 300 MG CAP PO STA (15:44)
[2020-04-18] MEDS ORDERED: ONDANSETRON 4 MG/2 ML VIAL ONE (16:10)
[2020-04-18] MEDS ORDERED: IV FLUID CONTINUATION 1,000 ML IV ONE ×2 (16:24)
[2020-04-18] MEDS ORDERED: DEXAMETHASONE SOD PHOSPHATE 10 MG/ML 1 ML VIAL IV ONE (16:30)
[2020-04-18] MEDS ORDERED: ONDANSETRON 4 MG/2 ML VIAL IVP ONE (16:30)
[2020-04-18] MEDS ORDERED: SCOPOLAMINE 1.5MG/72HR PATCH TRANSDERM ONE (16:31)
[2020-04-18] MEDS ORDERED: HEPARIN SODIUM,PORCINE 5,000 UNIT/ML 1 ML VIAL ONE ×2 (16:59→17:37)
[2020-04-18] MEDS ORDERED: ACETAMINOPHEN TAB 500 MG TAB ONE (17:23)
[2020-04-18] MEDS: ACETAMINOPHEN TAB 500 MG TAB PO STA ×2 (17:25→20:32)
[2020-04-18] MEDS: TAMSULOSIN 0.4 MG CAP.ER.24H PO STA ×2 (17:25→20:33)
[2020-04-18] MEDS ORDERED: KETOROLAC 30 MG/ML 1 ML VIAL ONE (17:37)
[2020-04-18] MEDS ORDERED: NEOSTIGMINE 1 MG/ML 10 ML VIAL ONE (17:37)
[2020-04-18] MEDS ORDERED: GLYCOPYRROLATE 0.2 MG/ML 2 ML VIAL ONE (17:37)
[2020-04-18] MEDS ORDERED: ROCURONIUM BROMIDE 10 MG/ML 5 ML VIAL IV ONE (17:37)
[2020-04-18] MEDS ORDERED: LIDOCAINE 1% INJ 10MG/ML (20 ML MDV) ONE (17:37)
[2020-04-18] MEDS ORDERED: HYDROmorphone (PF) 1 MG/ML ONE (17:37)
[2020-04-18] MEDS ORDERED: ceFAZolin 1,000 MG VIAL ONE (17:37)
[2020-04-18] MEDS ORDERED: MIDAZOLAM 2 MG/2 ML VIAL ONE (17:37)
[2020-04-18] MEDS ORDERED: PHENYLEPHRINE-0.9% NACL SYG 1 MG/10 ML SYRINGE ONE (17:37)
[2020-04-18] MEDS ORDERED: SUCCINYLCHOLINE CHLORIDE 100 MG/5 ML SYR IV ONE (17:37)
[2020-04-18] MEDS ORDERED: PROPOFOL 10 MG/ML 20 ML VIAL IV ONE (17:37)
[2020-04-18] MEDS ORDERED: fentaNYL (PF) 50 MCG/ML 2 ML AMP ONE (17:37)
[2020-04-18] MEDS ORDERED: SODIUM CHLORIDE 0.9% 100 ML with ceFAZolin 2,000 MG IV ONE ×2 (18:08)
[2020-04-18] MEDS ORDERED: BUPIVACAIN-EPI 0.25%-1:200,000 30 ML VIAL SQ ONE (18:10)
[2020-04-18] MEDS ORDERED: LACTATED RINGERS 1,000 ML IV ONE (18:12)
--- NOTE | 2020-04-18 19:23 | P.OP ---
Date of Procedure: 04/18/20 Description of Procedure: SURGEON: JOSEFINA MURPHY MD PREOPERATIVE DIAGNOSES: 1. Epigastric and right upper quadrant abdominal pain 2. Hypertensive heart disease 3. Hyperlipidemia 4. Obesity due to calories, BMI 31.3 POSTOPERATIVE DIAGNOSES: 1. Acute cholecystitis due to symptomatic gallstone 2. Hypertensive heart disease 3. Hyperlipidemia 4. Obesity due to calories, BMI 31.3 5. Peritoneal adhesions, greater omentum to the abdominal wall epigastrium and midline OPERATION: 1. Robotic-assisted da Corinne Xi laparoscopic cholecystectomy, multiport with FIREFLY 2. Robotic-assisted da Corinne Xi laparoscopic lysis of adhesions over 30 minutes ESTIMATED BLOOD LOSS: 5 mL. SPECIMENS REMOVED: Gallbladder. COMPLICATIONS: None. OPERATIVE FINDINGS: 1. Acute cholecystitis with gallbladder wall edema due to gallstones and cystic duct obstruction 2. Gallbladder infundibulum attached to proximal transverse colon 3. Greater omentum adhesed to the abdominal wall adding additional time for the case INDICATIONS: The patient is a 55-year-old male who presents with acute cholecystitis. Surgical intervention with a laparoscopic cholecystectomy was described. Robotic assisted laparoscopic approach was described. Benefits and risks of the procedure including but not limited to bleeding, infection, injury to the biliary tree was described. Informed consent was obtained. DESCRIPTION OF PROCEDURE: Patient was brought to the operating room, placed in supine position. After general induction, the abdomen had been prepped and draped in standard sterile fashion. The robotic da Corinne XI system was primed. After a timeout protocol was performed, the patient had been prepped and draped in standard sterile fashion. The patient was injected with indocyanine green. A 5 mm 0 degrees laparoscopic trocar entry was performed along the left upper quadrant. The abdomen insufflated to 15 mmHg pressure which was tolerated well. Diagnostic laparoscopy demonstrated no injury to bowel viscera or mesentery. The liver surface was unremarkable. Next, two 8 mm robotic ports were placed along the right upper abdomen. The camera 8-mm port was maintained along the epigastrium. Another 8 mm port was placed along the left upper abdominal wall after exchanging the 5 mm port. Please note that the ports were placed at least 10 to 15 cm away from the target anatomy of the gallbladder. The robot was docked along the left lateral abdomen. The patient was repositioned in reverse Trendelenburg position. Using a grasper for arm 3, a grasper for arm 4, including hook cautery for arm 1, the robotic system was docked and primed as described. Instruments were interchanged by the property assistant including hook cautery, Bovie cautery and clip appliers. I had sat at the console. Adhesions along the midline and upper abdomen were addressed using hook cautery for over 30 minutes. The gallbladder fundus was retracted over the dome of the liver. Initial attention was brought to the infundibulum including cystic lymph node. Initial dissection was performed over the cystic lymph node at the infundibulum using hook cautery. The infundibulum was retracted laterally to expose the cystic duct away from the common bile duct. The cystic duct including the cystic artery were dissected free from its surrounding tissue. Adhesion of the gallbladder infundibulum to transverse colon was carefully lysed. FIREFLY was used to identify the cystic artery and cystic structures. A critical view of safety was obtained. Large PLASTIC clips were used throughout the entire case. Using a clip applications trainer, 2 clips were placed at the junction of the infundibulum and cystic duct. The cystic duct was divided between clips. Next, the cystic artery was similarly clipped and cauterized. Electro-Bovie cautery was used to remove the gallbladder from the hepatic fossa. Hemostasis was checked and found to be adequate. The robot was undocked. I re-scrubbed into the case. Using a 10 mm Endo Catch bag via the left upper quadrant incision, the specimen was removed from the abdominal cavity. The fascia was oversewn using 0 Vicryl Shaw Lawler. All pneumoperitoneum instruments were evacuated from the abdominal cavity. The incisions were reapproximated using 4-0 Monocryl in an interrupted subcuticular fashion. Fascial defects were less than 8 mm in size. Please note along the trocar sites, local anesthetic was placed as a field block prior to insertion of all instruments. Liquid glue was applied to the skin. At the end of the procedure needle, sponge, and instrument count had been verified correct by the certified surgical first assistant. The patient was transferred to postanesthesia care unit in stable condition. Intraoperative films were shared with the patient's family who were pleased with the level of care.
[2020-04-18] MEDS: KETOROLAC 30 MG/ML 1 ML VIAL IVP SCH (21:20)
[2020-04-19] MEDS: KETOROLAC 30 MG/ML 1 ML VIAL IVP SCH ×2 (02:56→08:12)
[2020-04-19] MEDS: FAMOTIDINE 20 MG/2 ML VIAL IV SCH (06:04)
[2020-04-19] MEDS: SODIUM CHLORIDE 0.9% 1,000 ML IV SCH (06:07)
[2020-04-19 07:55] VITALS: BP 119/71; PULSE 73; RESP 17; TEMP 97.4
[2020-04-19] MEDS: LOSARTAN 50 MG TAB PO SCH (08:11)
[2020-04-19] MEDS: amLODIPine 5 MG TAB PO SCH (08:12)
[2020-04-19] MEDS ORDERED: ENOXAPARIN 30 MG/0.3 ML SYRINGE SQ SCH (09:00)
[2020-04-19] MEDS ORDERED: ACETAMINOPHEN TAB 325 MG TAB PO SCH (20:00)
--- NOTE | 2020-04-20 21:17 | P.DS ---
Providers Date of admission: 04/18/20 06:27 Expected date of discharge: 04/19/20 Attending physician: Tori Mcqueen Primary care physician: Nigel Donovan - Discharge Diagnosis(es) (1) Acute cholecystitis due to biliary calculus Status: Acute Hospital Course: POSTOPERATIVE DIAGNOSES: 1. Acute cholecystitis due to symptomatic gallstone 2. Hypertensive heart disease 3. Hyperlipidemia 4. Obesity due to calories, BMI 31.3 5. Peritoneal adhesions, greater omentum to the abdominal wall epigastrium and midline COURSE: The patient is a 55-year-old male who presented with acute cholecystitis. He underwent surgical intervention with a robotic cholecystectomy. Prior to discharge, he was hemodynamically stable. Discharge instructions including pain management were reviewed in detail. Patient to follow-up in the office in one week. Procedures: OPERATION: 1. Robotic-assisted da Corinne Xi laparoscopic cholecystectomy, multiport with FIREFLY 2. Robotic-assisted da Corinne Xi laparoscopic lysis of adhesions over 30 minutes ESTIMATED BLOOD LOSS: 5 mL. SPECIMENS REMOVED: Gallbladder. COMPLICATIONS: None. OPERATIVE FINDINGS: 1. Acute cholecystitis with gallbladder wall edema due to gallstones and cystic duct obstruction 2. Gallbladder infundibulum attached to proximal transverse colon 3. Greater omentum adhesed to the abdominal wall adding additional time for the case I Patient Condition at Discharge: Stable Plan - Discharge Summary Discharge Rx Participant: Yes New Discharge Prescriptions: Continue Rosuvastatin Calcium [Crestor] 5 mg PO DAILY Multivitamins, Thera [Multivitamin (formulary)] 1 tab PO DAILY amLODIPine BES/OLMESARTAN MED [amLODIPine BES/OLMESARTAN MED 5-20 MG] 1 tab PO DAILY Rosuvastatin Calcium [Crestor] 5 mg PO DAILY Discharge Medication List Multivitamins, Thera [Multivitamin (formulary)] 1 tab PO DAILY 01/27/17 [History] Rosuvastatin Calcium [Crestor] 5 mg PO DAILY 01/27/17 [History] amLODIPine BES/OLMESARTAN MED [amLODIPine BES/OLMESARTAN MED 5-20 MG] 1 tab PO D AILY 10/11/19 [History] Rosuvastatin Calcium [Crestor] 5 mg PO DAILY 04/18/20 [History] Follow up Appointment(s)/Referral(s): Nigel Donovan DO [Primary Care Provider] - 1-2 days Tori Mcqueen MD [STAFF PHYSICIAN] - 04/25/20 Patient Instructions/Handouts: Laparoscopic Cholecystectomy (DC) Activity/Diet/Wound Care/Special Instructions: No lifting over 10 pounds in 2 weeks until May 02. January shower. No bath tub soaks for two weeks until May 02. Diet as tolerated. No driving while on narcotics. Use Tylenol and ibuprofen scheduled for the next 24-48 hours for best pain relief. Use ice along incisions for the today to prevent swelling. Discharge Disposition: HOME SELF-CARE
== END 2020-04-19 08:47 | disposition home or self-care (01) ==
LOC: EC 02:35 → 1SOBS 06:27
PROVIDERS: ADMIT Surgery Plastic and Reconstructive Surgery; ATTEND Surgery Plastic and Reconstructive Surgery
DX: K80.20 Calculus of gallbladder without cholecystitis without obstruction (principal); E66.9 Obesity, unspecified; E78.5 Hyperlipidemia, unspecified; I11.9 Hypertensive heart disease without heart failure; Z68.31 Body mass index [BMI] 31.0-31.9, adult; Z79.899 Other long term (current) drug therapy; Z83.3 Family history of diabetes mellitus; Z82.49 Family history of ischemic heart disease and other diseases of the circulatory system; Z03.818 Encounter for observation for suspected exposure to other biological agents ruled out; K21.9 Gastro-esophageal reflux disease without esophagitis; Z88.8 Allergy status to other drugs, medicaments and biological substances; K66.0 Peritoneal adhesions (postprocedural) (postinfection)
CPT/HCPCS: 96374; 99285; 36415; 88304; 80053; 82150; 83690; 85025; 81003; 74176; 47562; G0378 ×2; U0003; J2543; J2250; J1644; J1100; J2710; J2405; J0690; J2001; J3010; J1885 ×2; J1650; J1170 ×2; J2370; J0330; J2704

== ENCOUNTER → 2021-11-07 | Outpatient (CLI) | payer BC ==
[2021-11-07 14:32] LABS: ALT 17 U/L (10-49); AST 17 U/L (14-35)
== END | disposition home or self-care (01) ==
LOC: LABWHC1 09:34
PROVIDERS: ATTEND Podiatrist Foot & Ankle Surgery
DX: K74.60 Unspecified cirrhosis of liver (principal)
CPT/HCPCS: 36415; 84450; 84460

== ENCOUNTER → 2024-05-11 | Outpatient (CLI) | payer BC | END | disposition home or self-care (01) | LOC: LABPRL 09:35 | PROVIDERS: ATTEND Family Medicine | DX: Z00.00 Encounter for general adult medical examination without abnormal findings (principal); Z12.5 Encounter for screening for malignant neoplasm of prostate; E78.5 Hyperlipidemia, unspecified; I10 Essential (primary) hypertension | CPT/HCPCS: 80061; 80053; 83735; 85025; 83036; G0103 ==

== ENCOUNTER → 2025-01-01 | Outpatient (CLI) | payer BC ==
[2025-01-01 10:41] LABS: ALT 16 U/L (10-49); AST 15 U/L (14-35); Albumin 4.5 g/dL (3.8-4.9); Albumin/Globulin Ratio 2.05 Ratio (1.60-3.17); Alkaline Phosphatase 53 U/L (41-126); Blood Urea Nitrogen 9.8 mg/dL (9.0-27.0); Calcium 9.5 mg/dL (8.7-10.3); Carbon Dioxide 28.8 mmol/L (21.6-31.8); Chloride 104 mmol/L (96-109); Chol/HDL Ratio 2.62 Ratio; Globulin 2.2 g/dL (1.6-3.3); Glucose 104 mg/dL (70-110); LDL Cholesterol,Calculated 54.8 mg/dL (0.0-131.0); Potassium 4.6 mmol/L (3.5-5.5); Sodium 140 mmol/L (135-145); Total Bilirubin 0.3 mg/dL (0.3-1.2); Total Protein 6.7 g/dL (6.2-8.2); VLDL Calculation 17.62 mg/dL (5.00-40.00)
== END | disposition home or self-care (01) ==
LOC: LABWHC1 07:02
PROVIDERS: ATTEND Internal Medicine Interventional Cardiology
DX: E78.2 Mixed hyperlipidemia (principal)
CPT/HCPCS: 36415; 80053; 80061